=== PATIENT | female | born 1935 | race Caucasian/White ===

== ENCOUNTER 2016-09-10 14:35 | Inpatient (IN) | payer MEDICARE, BC ==
[~2016-09-10] VITALS: Ht 157.5 cm; Wt 67.1 kg
[2016-11-27] MEDS ORDERED: ASPIRIN 32325 MG/TAB PO (13:09)
[2016-11-27] MEDS ORDERED: TUMS500 MG PO (13:10)
[2016-11-27] MEDS ORDERED: ZYRTEC 10MG10 MG PO (13:10)
[2016-11-27] MEDS ORDERED: PEPCID 20MG TAB20 MG PO ×2 (13:11→13:12)
[2016-11-27] MEDS ORDERED: FLOVENT 110MCG7.9 GM IH (13:13)
[2016-11-27] MEDS ORDERED: SYNTHROID0.05 MG/TA PO (13:14)
[2016-11-28] VITALS (12 sets, daily range): BP systolic 119–158; BP diastolic 47–81; PULSE 50–92; TEMP 97.5–97.6
[2016-11-28] MEDS ORDERED: SYSTANE 0.4%-0.1 SOL OU (08:34)
[2016-11-28] MEDS ORDERED: VITAMIN C500 MG PO (08:35)
[2016-11-28] MEDS ORDERED: FOLIC ACID 40400 MCG PO (08:35)
[2016-11-28] MEDS ORDERED: FERROUS SU325 MG/TAB PO (08:35)
[2016-11-28] MEDS ORDERED: DRAMAMINE 50MG50 MG PO (08:36)
[2016-11-29 03:57] VITALS: BP 124/54; PULSE 70; TEMP 97.8
[2016-11-29] MEDS ORDERED: NORCO 325 MG-7.1 TAB PO (06:05)
[2016-11-29] MEDS ORDERED: ULTRAM 50MG TAB50 MG PO (06:06)
[2016-11-29 07:27] VITALS: BP 124/58; PULSE 79; TEMP 97.8
[2016-11-29 08:55] LABS: HEMATOCRIT 33.1 % (37.0-47.0); HEMOGLOBIN 10.8 g/dl (12.5-16.0)
[2016-11-29 11:25] VITALS: BP 124/51; PULSE 70
[2016-11-29 16:13] VITALS: BP 137/58; PULSE 69; TEMP 97.9
[2016-11-29 21:00] VITALS: BP 126/45; PULSE 67; TEMP 97.9
[2016-11-29 23:48] VITALS: BP 126/58; PULSE 66; TEMP 97
[2016-11-30 05:26] VITALS: BP 123/79; PULSE 66; TEMP 98.5
[2016-11-30 07:02] LABS: HEMATOCRIT 31.2 % (37.0-47.0)
[2016-11-30 07:43] VITALS: BP 135/53; PULSE 74; TEMP 97.7
[2016-11-30 12:28] VITALS: BP 135/55; PULSE 80; TEMP 97.5
[2016-11-30 16:15] VITALS: BP 148/57; PULSE 81; TEMP 98.2
[2016-11-30 20:00] VITALS: BP 133/51; PULSE 83; TEMP 98.5
[2016-12-01 03:12] VITALS: BP 137/57; PULSE 78; TEMP 98
[2016-12-01 05:07] VITALS: BP 143/62; PULSE 88; TEMP 98.5
[2016-12-01 07:19] VITALS: BP 135/53; PULSE 86; TEMP 97.6
[2016-12-01 10:44] VITALS: BP 135/53; PULSE 86; TEMP 97.6
== END 2016-12-01 11:10 | DRG 470 ==
LOC: JCC 11-20 07:30
PROVIDERS: Orthopaedic Surgery; Physician Assistant
PROC: 0SRB0JZ Replacement of Left Hip Joint with Synthetic Substitute, Open Approach (ICD-10-PCS; principal; 2016-11-28 10:15)
DX: M16.12 Unilateral primary osteoarthritis, left hip (principal); Z87.891 Personal history of nicotine dependence
CPT/HCPCS: A4315; A9284; C1713; C1776; J0690; J1100; J1885; J2250; J2405; J2704; J7120

== ENCOUNTER → 2016-09-17 | Outpatient (CLI) | payer MEDICARE, BC ==
[~2016-09-17] MED LIST: ASPIRIN 32325 MG/TAB PO; DRAMAMINE 50MG50 MG PO; FERROUS SU325 MG/TAB PO; FLOVENT 110MCG7.9 GM IH; FOLIC ACID 40400 MCG PO; NORCO 325 MG-7.1 TAB PO; PEPCID 20MG TAB20 MG PO; SYNTHROID0.05 MG/TA PO; SYSTANE 0.4%-0.1 SOL OU; TUMS500 MG PO; ULTRAM 50MG TAB50 MG PO; VITAMIN C500 MG PO; ZYRTEC 10MG10 MG PO
== END ==
LOC: COL.RAD 11:07
DX: M25.552 Pain in left hip (principal)
CPT/HCPCS: J3301; Q9967

== ENCOUNTER → 2016-11-16 | Outpatient (CLI) | payer MEDICARE, BC | LOC: COL.LAB 11:59 | DX: Z01.812 Encounter for preprocedural laboratory examination (principal); M25.852 Other specified joint disorders, left hip ==

== ENCOUNTER → 2018-01-17 | Outpatient (CLI) | payer MEDICARE, BC | LOC: MC.RAD 01-14 13:20 | DX: Z12.31 Encounter for screening mammogram for malignant neoplasm of breast (principal) ==

== ENCOUNTER → 2019-01-19 | Outpatient (CLI) | payer MEDICARE, BC | LOC: MC.RAD 09:27 | DX: Z12.31 Encounter for screening mammogram for malignant neoplasm of breast (principal); N63.20 Unspecified lump in the left breast, unspecified quadrant ==

== ENCOUNTER → 2019-01-21 | Outpatient (CLI) | payer MEDICARE, BC | LOC: MC.RAD 14:06 | DX: N64.89 Other specified disorders of breast (principal); N63.22 Unspecified lump in the left breast, upper inner quadrant ==

== ENCOUNTER → 2019-08-13 | Outpatient (CLI) | payer MEDICARE, BC | LOC: MC.RAD 10:00 | DX: N60.02 Solitary cyst of left breast (principal); N63.20 Unspecified lump in the left breast, unspecified quadrant | CPT/HCPCS: G0279 ==

== ENCOUNTER 2020-09-30 10:14 | Inpatient (IN) | payer MEDICARE, BC ==
[~2020-09-30] VITALS: Ht 160 cm; Wt 67.6 kg
[2020-10-26] VITALS (12 sets, daily range): BP systolic 105–165; BP diastolic 47–83; PULSE 69–100; TEMP 97.4–98.6
[2020-10-26] MEDS ORDERED: FOLIC ACID 40400 MCG PO (06:10)
[2020-10-26] MEDS ORDERED: ANTIVERT 25MG25 MG PO (06:10)
[2020-10-26] MEDS ORDERED: AQUAPHOR HEALING41% TP (06:11)
--- NOTE | 2020-10-26 06:43 | NUR ---
The patient was brought back to [place] [facility] via wheelchair at this time. The patient transferred from the wheelchair to the cart in her room independently and appeared to tolerate the activity well. Vital signs obtained. Consent signed. 18G IV started in left wrist with one stick, LR infusing without difficulty. Assessment completed. Meds reconcilled. Scrub completed to right hip as ordered. Thigh high FAY hose placed to left leg. Call light is within reach. Will continue to monitor the patient.
--- NOTE | 2020-10-26 07:15 | NUR ---
The patient was taken back via cart to the operating room at this time. The phoenix's chart was sent with her to surgery. The patient's belongings were taken over the to recovery room and will be transferred up with the patient to the 3rd floor post operatively.
--- NOTE | 2020-10-26 09:30 | NUR ---
Patient back from surgery. She is drowsy but oriented x4. Dressing to right hip is C/D/I. No complaints of pain or nausea. She is able to move her legs on the bed but dose have sensation to areas touched. Explained the plan for today. Encouraged her to do deep breathing exercises and ankle pumps. No questions verbalized at this time. Ice pack to right hip. No other changes, call light within reach.
--- NOTE | 2020-10-26 18:00 | NUR ---
Patient has dose well this afternoon. Did not get her up because she was feeling dizzy. Continues to be without pain to her hip. Dressing remains C/D/I. Eating and drinking regular diet without nausea. Needs reminders to do deep breathing exercises and ankle pumps. No other changes at this time. Call light within reach. Explained she will get up and walk this evening.
[2020-10-27 04:09] VITALS: BP 116/48; PULSE 79; TEMP 97.9
--- NOTE | 2020-10-27 05:32 | NUR ---
Patient had minimal complaints this shift. Pain controlled with scheduled toradol. Dressing to right hip clean, dry, and intact. No other needs at this time. Call light in reach.
--- NOTE | 2020-10-27 06:14 | NUR ---
DC neal catheter. Patient tolerated well. Encouraged patient to call if she felt the need to void.
[2020-10-27 06:29] LABS: HEMOGLOBIN 10.7 g/dl (12.5-16.0)
[2020-10-27 06:30] LABS: HEMATOCRIT 32.4 % (37.0-47.0)
[2020-10-27] MEDS ORDERED: NORCO 325 MG-7.1 TAB PO (07:19)
[2020-10-27] MEDS ORDERED: ASPI325T6 PO (07:19)
[2020-10-27] MEDS ORDERED: ULTRAM 50MG TAB50 MG PO (07:19)
[2020-10-27 07:23] VITALS: BP 118/54; PULSE 76; TEMP 97.4
[2020-10-27 11:49] VITALS: BP 128/59; PULSE 77; TEMP 97.8
--- NOTE | 2020-10-27 12:15 | NUR ---
First visit from the quality nurse. prayed with patient. No other needs right now.
--- NOTE | 2020-10-27 12:41 | NUR ---
KASSIE met with the patient to discuss discharge plan. The patient lives in [place] with her , Aakash (ph#[phone]). She reports independence with ADLs and has a cane, 4 prong cane, and walker. The patient's primary care provider is SENDY Huitron at [facility] and she receives her medications from [facility]. She reports no difficulties obtaining her meds. The patient does not have a DPOA-HC and she was not interested in completing one while here. The patient had a hip replacement. The [facility] and plans to go to [facility] upon discharge. KASSIE contacted and faxed a referral to [facility]. Awaiting screen. KASSIE attempted to contact the patient's , Aakash, to review the above. KASSIE left him a voicemail.
--- NOTE | 2020-10-27 12:58 | NUR ---
AGREE WITH STUDENT'S ASSESSMENTS
[2020-10-27 16:05] VITALS: BP 107/87; PULSE 77; TEMP 97.6
--- NOTE | 2020-10-27 18:53 | NUR ---
RECEIVED CHANGE OF SHIFT REPORT FROM DAY SHIFT NURSE. PATIENT RESTING IN BED WITH NO COMPLAINTS DURING REPORT.
--- NOTE | 2020-10-27 19:35 | NUR ---
DENIES CHEST PAIN/SHORTNESS OF AIR/NAUSEA AT THIS TIME. DENIES NUMBNESS/TINGLING TO EXTREMITIES AT THIS TIME.
[2020-10-27 20:41] VITALS: BP 132/60; PULSE 67; TEMP 98.4
[2020-10-28 03:49] VITALS: BP 146/57; PULSE 71; TEMP 97.9
[2020-10-28 06:27] LABS: HEMOGLOBIN 10.4 g/dl (12.5-16.0)
[2020-10-28 06:35] LABS: HEMATOCRIT 31.9 % (37.0-47.0)
--- NOTE | 2020-10-28 07:36 | NUR ---
CHANGE OF SHIFT REPORT GIVEN TO DAY SHIFT NURSE, SHYAM ABREU.
[2020-10-28 07:57] VITALS: BP 147/60; PULSE 68; TEMP 97.9
--- NOTE | 2020-10-28 08:40 | NUR ---
Chyna, at [facility], reports that they are able to accept the patient for a skilled stay. SW to inform the patient and her .
[2020-10-28 11:54] VITALS: BP 141/57; PULSE 63; TEMP 97.3
--- NOTE | 2020-10-28 12:00 | NUR ---
Patient was up walking with PT and became nauseated. She did not vomit but thought she was going. Minimal complaints of pain. This nurse and the student nurse offered the patient zofran for nausea but she refused. She is also having dizziness but did not want to take meclizine at this time. Discussed just taking the tylenol for pain and seeing if it helps with the dizziness and nausea. She is eating lunch at this time ans stated she is feeling much better. No other changes at this time. Call light within reach.
--- NOTE | 2020-10-28 12:51 | NUR ---
The patient is to tentatively d/c tomorrow, 10/29, to [facility] for a skilled stay. SW met with the patient and her , Aakash, to update. They are agreeable to the plan. SW presented and read the IM form outloud to the patient. The patient verbalized understanding and gave SW approval to sign the form on her behalf. KASSIE provided her with a copy.
[2020-10-28 15:40] VITALS: BP 127/53; PULSE 66; TEMP 97.4
--- NOTE | 2020-10-28 16:40 | NUR ---
TAKING OVER PATIENT'S CARE. RECEIVED REPORT FROM LOIS HOWE.
--- NOTE | 2020-10-28 17:00 | NUR ---
Alo Grace RN will be resuming care for this patient at this time. Patient has been doing well this afternoon. Nausea is much better and her dizziness is not as constant as it was before. No other changes at this time. Call light within reach.
--- NOTE | 2020-10-28 17:40 | NUR ---
OBTAINED COVID SWAB, SENT TO LAB.
[2020-10-28 19:37] VITALS: BP 125/65; PULSE 72; TEMP 97.5
--- NOTE | 2020-10-28 20:00 | NUR ---
ASSISTED TO BATHROOM WITH GAIT BELT AND WALKER. PT IS ALERT AND ORIENTED X4. REQUIRES MINIMAL ASSIST WITH LIFTING RT LEG OUT OF BED. GAIT STEADY. HAS LARGE BM AND BACK TO BED.
[2020-10-29 00:01] VITALS: BP 122/60; PULSE 77; TEMP 97
--- NOTE | 2020-10-29 00:35 | NUR ---
MEDICATED WITH TRAMADOL 100MG PO FOR RT HIP PAIN.
[2020-10-29 04:11] VITALS: BP 125/63; PULSE 79; TEMP 98
--- NOTE | 2020-10-29 04:30 | NUR ---
TO BATHROOM WITH MINIMAL ASSIST. VOIDS AND BACK TO BED. DENIES NEED FOR PAIN MEDS AT THIS TIME.
--- NOTE | 2020-10-29 09:15 | NUR ---
PT UP IN BED. C/O NAUSEA AFTER RECIEVING PO PAIN MEDS. SPRITE AND CRACKERS PROVIDED. PT REPORTS NAUSEA HAS PASSED. PT REFUSING ALL PO MEDS THIS AM. PLAN ON DISCHARGE TO [facility] LATER TODAY.
--- NOTE | 2020-10-29 13:00 | NUR ---
NO ANSWER AT [facility]. LEFT MESSAGE FOR REPORT.
== END 2020-10-29 12:50 | DRG 470 ==
LOC: INPTSU 10-26 05:41 → SURG 10-26 07:30 → JCC 10-26 09:25
PROVIDERS: Physician Assistant; ADMIT Orthopaedic Surgery
PROC: 0SR904A Replacement of Right Hip Joint with Ceramic on Polyethylene Synthetic Substitute, Uncemented, Open Approach (ICD-10-PCS; principal; 2020-10-28)
DX: M16.11 Unilateral primary osteoarthritis, right hip (principal); J45.909 Unspecified asthma, uncomplicated; Z96.642 Presence of left artificial hip joint; Z20.822 Contact with and (suspected) exposure to COVID-19; Z88.2 Allergy status to sulfonamides; Z91.018 Allergy to other foods; Z87.891 Personal history of nicotine dependence
CPT/HCPCS: A4314; A9284; C1713; C1776; J0690; J1100; J1885; J2250; J2405; J2704; J3010; J7120

== ENCOUNTER → 2020-10-30 | Outpatient (CLI) | payer OTHER, BC ==
[~2020-10-30] MED LIST changes: +ANTIVERT 25MG25 MG PO; +AQUAPHOR HEALING41% TP; +ASPI325T6 PO
[2020-10-30 14:32] LABS: BASO % 0.4 % (0.0-2.0); EOS # 0.2 (0.0-0.7); EOS % 1.5 % (0-4.0); GRAN # 8.2 (1.4-6.5); GRAN % 77.3 % (42.2-75.2); HEMOGLOBIN 11.9 g/dl (12.5-16.0); LYMPH # 1.4 (1.2-3.4); MEAN CELL VOLUME 88 fl (80.0-100.0); MEAN CORPUSCULAR HEMOGLOBIN 29 pg (27.0-31.0); MEAN CORPUSCULAR HGB CONC 32 g/dl (33.0-37.0); MEAN PLATELET VOLUME 11.1 fl (7.4-10.4); MONO # 0.8 (0.1-0.6); MONO % 7.1 % (1.7-9.3); PLATELET COUNT 300 K/mm3 (130-400); RED BLOOD COUNT 4.18 M/mm3 (4.10-5.30); REDCELL DISTRIBUTION WIDTH-CV 14.1 % (11.5-14.5)
[2020-10-30 14:36] LABS: HEMATOCRIT 36.7 % (37.0-47.0)
[2020-10-30 14:38] LABS: ALANINE AMINOTRANSFERASE 22 U/L (4-34); ALBUMIN 3.5 gm/dL (3.5-5.0); ALKALINE PHOSPHATASE 58 U/L (50-136); ANION GAP 9 mmol/L (7-16); AST,SGOT 41 U/L (15-37); BILIRUBIN,TOTAL 1.3 mg/dL (0.0-1.0); BLOOD UREA NITROGEN 7 mg/dL (7-17); CALCIUM 8.5 mg/dL (8.4-10.2); CARBON DIOXIDE 25 mmol/L (22-30); CHLORIDE 95 mmol/L (98-107); CREATININE, serum 0.61 (0.52-1.25); GLUCOSE 111 mg/dL (74-106); POTASSIUM 3.6 mmol/L (3.4-5.0); SODIUM 129 mmol/L (137-145); TOTAL PROTEIN 6.3 gm/dL (6.4-8.2)
[2020-10-30 14:55] LABS: TROPONIN-I < 0.012 ng/mL (0.000-0.035)
== END ==
LOC: COL.LAB 14:14
DX: R11.0 Nausea (principal)

== ENCOUNTER → 2021-04-18 | Outpatient (CLI) | payer MEDICARE, BC | LOC: MC.RAD 14:30 | DX: Z12.31 Encounter for screening mammogram for malignant neoplasm of breast (principal) ==

== ENCOUNTER → 2022-08-31 | Outpatient (CLI) | payer MEDICARE, BC | LOC: MC.RAD 10:45 | DX: Z12.31 Encounter for screening mammogram for malignant neoplasm of breast (principal) ==